=== PATIENT | male | born 1950 | race Caucasian/White ===

== ENCOUNTER → 2016-06-16 | Outpatient (CLI) | payer OTHER | END | disposition home or self-care (01) | LOC: LAB 10:13 | PROVIDERS: ATTEND Urology | DX: Z12.5 Encounter for screening for malignant neoplasm of prostate (principal); N40.0 Benign prostatic hyperplasia without lower urinary tract symptoms | CPT/HCPCS: G0103 ==

== ENCOUNTER 2016-09-25 14:25 | Emergency (ER) | payer OTHER ==
[~2016-09-25] VITALS: Ht 185.4 cm; Wt 83.9 kg
[2016-09-25 14:35] VITALS: BP 149/71
[2016-09-25] MEDS ORDERED: DIPHTH,PERTUSS(ACELL),TET TOX 0.5 ML DISP.SYRIN. VAX IM ONE (15:00)
--- NOTE | 2016-09-25 15:07 | PHYS DOC ---
Past History Past Medical History: Liver Disease, Other Past Surgical History: Other Alcohol Use: Rarely Drug Use: None Adult General Chief Complaint Chief Complaint: LACERATION/AVULSION HPI HPI 66-year-old male presenting to the emergency department today after sustaining an injury to his left second metacarpophalangeal joint. He was working with a miter saw when he accidentally cut into the backside of his hand. He reports being otherwise healthy and denies any other injuries. Onset today. Location left hand. Duration constant. No alleviating or exacerbating factors. Review of systems is negative for chest pain shortness of breath elbow pain or any other injuries. All other review of systems is negative unless otherwise noted in history of present illness. ED course: 66-year-old gentleman presenting to the emergency department with a left second metacarpophalangeal dorsal laceration. On inspection of the wound in good lighting and with good hemostasis there does not appear to be tendon injury however it is unclear whether the patient cut into his metacarpophalangeal joint. I discussed the case with our orthopedic surgeon on- call Dr. Ng and relayed my findings. He recommended thorough cleaning and washout in the emergency department with loose reapproximation and close follow- up. The wound was cleansed out in the emergency department with soap and water along with Betadine. Laceration was loosely reapproximated. The patient was subsequently discharged home to follow-up with Dr. Ng either tomorrow or on Thursday. If they were unable to get and they were to return to the emergency room. Strict return precautions given for signs of infection. Prophylactic antibiotics given. Review of Systems Review of Systems SEE ABOVE. Current Medications Current Medications Current Medications Medications (Trade) Dose Ordered Sig/Trudy Start Time Stop Time Status Last Admin Dose Admin Diphtheria/ Tetanus/Acell Pertussis (Boostrix) 0.5 ml ONCE ONCE 09/25/16 15:00 09/25/16 15:01 DC Allergies Allergies Allergies Coded Allergies Type Severity Reaction Last Updated Verified No Known Drug Allergies 09/25/16 No Physical Exam Physical Exam Constitutional: Well developed, well nourished, no acute distress, non-toxic appearance. [] HENT: Normocephalic, atraumatic, bilateral external ears normal, oropharynx moist, no oral exudates, nose normal. [] Eyes: PERRLA, EOMI, conjunctiva normal, no discharge. [] Neck: Normal range of motion, no tenderness, supple, no stridor. [] Cardiovascular:Heart rate regular rhythm, no murmur [] Lungs & Thorax: Bilateral breath sounds clear to auscultation [] Abdomen: Bowel sounds normal, soft, no tenderness, no masses, no pulsatile masses. [] Skin: Warm, dry, no erythema, no rash. [] Back: No tenderness, no CVA tenderness. [] Extremities: The left hand is warm and well perfused with a palpable pulse. 2 second cap refill distally with normal neurovascular status. Sensation is intact only radial and ulnar aspect of the patient's second phalanx. There is a 2 cm laceration running in the proximal distal direction just above the second metacarpophalangeal joint. No evidence of tendon laceration however it is unclear whether there was disruption of the joint space. Neurologic: Alert and oriented X 3, normal motor function, normal sensory function, no focal deficits noted. [] Psychologic: Affect normal, judgement normal, mood normal. [] Current Patient Data Vital Signs Vital Signs Date Time Temp Pulse Resp B/P (MAP) Pulse Ox O2 Delivery O2 Flow Rate FiO2 09/25/16 14:35 98.3 71 16 98 Room Air EKG EKG [] Radiology/Procedures Radiology/Procedures [] Course & Med Decision Making Course & Med Decision Making Pertinent Labs and Imaging studies reviewed. (See chart for details) [] Dragon Disclaimer Dragon Disclaimer This chart was dictated in whole or in part using Voice Recognition software in a busy, high-work load, and often noisy Emergency Department environment. It may contain unintended and wholly unrecognized errors or omissions. Departure Departure: Impression: Primary Impression: Hand laceration Disposition: HOME, SELF-CARE Condition: STABLE Referrals: PCP,UNKNOWN (PCP) Patient Instructions: Laceration Care, Adult Additional Instructions: Follow-up with Dr. Ng. either tomorrow or on Thursday. Scripts Hydrocodone Bit/Acetaminophen (HYDROCODONE-APAP 5-325 ) 1 Each Tablet 1 TAB PO PRN Q6HRS Y for PAIN, #8 TAB 0 Refills Prov: DANIEL CID MD 09/25/16 Amoxicillin/Potassium Clav (AUGMENTIN 875-125 TABLET) 1 Each Tablet 1 TAB PO BID, #14 TAB Prov: DANIEL CID MD 09/25/16 Laceration Repair Lac Repair Indication: [] Hand laceration Procedure: The patient was placed in the appropriate position and anesthesia around the left hand on the dorsum. The wound was washed out using 1 L of sterile saline and inspected under good lighting with good hemostasis. The laceration was closed using one absorbable suture and 5 nonabsorbable 50 sutures. [ Total repaired wound length: 2cm Other Items: The patient tolerated the procedure well. Complications: none. Problem Qualifiers Primary Impression: Hand laceration Encounter type: initial encounter Foreign body presence: without foreign body Laterality: left Qualified Codes: S61.412A - Laceration without foreign body of left hand, initial encounter DANIEL CID MD Sep 25, 2016 15:07
--- NOTE | 2016-09-25 15:21 | RAD ---
Left hand, 3 views, 09/25/2016: History: Left hand laceration No fracture or dislocation is identified. There is mild degenerative change at the wrist. IMPRESSION: No acute bony abnormality is detected.
[2016-09-25] MEDS ORDERED: LIDOCAINE WITH 8.4% SOD BICARB 3 ML DISP.SYRIN. IJ ONE (16:02)
[2016-09-25] MEDS ORDERED: AMOX1TAB61 PO (16:44)
[2016-09-25] MEDS ORDERED: HYDR-2758 PO (16:46)
== END 2016-09-25 16:40 | disposition home or self-care (01) ==
LOC: ER 14:25
DX: S61.211A Laceration without foreign body of left index finger without damage to nail, initial encounter (principal); W45.8XXA Other foreign body or object entering through skin, initial encounter; Y93.89 Activity, other specified; Y99.8 Other external cause status; Y92.89 Other specified places as the place of occurrence of the external cause
CPT/HCPCS: 12001; 73130; 90471; 90715; 99284-25

== ENCOUNTER → 2017-07-28 | Outpatient (CLI) | payer MEDICARE, OTHER ==
[~2017-07-28] MED LIST: AMOX1TAB61 PO; HYDR-2758 PO
== END | disposition home or self-care (01) ==
LOC: SURG 08:47
PROVIDERS: ATTEND Anesthesiology
DX: M47.892 Other spondylosis, cervical region (principal); Z98.890 Other specified postprocedural states
CPT/HCPCS: 99204

== ENCOUNTER → 2020-05-02 | Outpatient (CLI) | payer MEDICARE, OTHER ==
[~2020-05-02] MED LIST changes: +HYDR-2155 PO; -HYDR-2758 PO
--- NOTE | 2020-05-02 13:44 | RAD ---
Two-view abdomen dated 05/02/2020. No comparison available. Clinical data indication: Abdominal pain. FINDINGS: Flat and upright views obtained. Nondilated gas-filled loops of bowel throughout. No abnormal calcifi cation. There is a small moderate amount stool throughout. No air-fluid level or pneumoperitoneum on the upright view. Surgical clips at the left groin. IMPRESSION: Nonobstructive bowel gas pattern. Electronically signed by: Robe Del Angel MD (05/02/2020 1:42 PM) [id number]
== END ==
LOC: PMG 10:17
PROVIDERS: ATTEND Physician Assistant
DX: R10.84 Generalized abdominal pain (principal)
CPT/HCPCS: 74019

== ENCOUNTER → 2020-05-08 | Outpatient (CLI) | payer MEDICARE, OTHER ==
--- NOTE | 2020-05-08 09:46 | RAD ---
EXAM: Abdomen sonogram. HISTORY: Pain. TECHNIQUE: Sonographic imaging of the abdomen was performed. COMPARISON: None. FINDINGS: The liver is normal in size. No focal hepatic lesion is seen. The common bile duct is patrick l in caliber. The gallbladder is unremarkable. The kidneys are normal in size. There is moderate left hydronephrosis or a left extrarenal pelvis or 2.8 cm parapelvic cyst. The left kidney is partially o bscured due to bowel gas and rib shadowing. The spleen is normal in size. The pancreas, aorta and inf erior vena cava are obscured due to bowel gas. IMPRESSION: 1. Moderate left hydronephrosis or a left extrarenal pelvis or parapelvic cyst, difficult to assess g iven overlying bowel gas and rib shadowing. 2. Obscured midline structures due to bowel gas. Electronically signed by: Jessica Patel MD (05/08/2020 9:44 AM) [id number]
== END ==
LOC: US 08:43
PROVIDERS: ATTEND Physician Assistant
DX: R10.84 Generalized abdominal pain (principal)
CPT/HCPCS: 76700

== ENCOUNTER → 2020-05-21 | Outpatient (CLI) | payer MEDICARE, OTHER ==
--- NOTE | 2020-05-22 08:16 | RAD ---
CT ABDOMEN+PELVIS WO History: Hydronephrosis. Comparison: Ultrasound abdomen 05/08/2020, CT abdomen and pelvis 04/12/2012. Technique: CT of the abdomen and pelvis without contrast. Findings: Lung bases: Clear lungs. No pleural or pericardial effusion. General abdomen: No ascites. No free air. Liver : Normal in size and attenuation. No masses seen. Gallbladder/Biliary Tree: Normal gallbladder. No intrahepatic or extrahepatic biliary ductal dilatati on. Pancreas: Normal. Spleen: Normal in size and attenuation. Adrenal Glands: ?Normal. Genitourinary: The left kidney demonstrates numerous peripelvic cysts and a somewhat prominent extrar enal pelvis which appears similar to [address] There is a 3 mm left lower pole nephrolith.? The right kidney is normal. No renal masses identified. Normal partially distended bladder contour. Gastrointestinal: Unremarkable. Lymph nodes: No lymphadenopathy. Vessels: Unremarkable. Pelvic Organs: ?Coarse prostatic calcifications. Soft tissues: Left inguinal vasectomy clips. Bones: No acute or aggressive lesions. ?Fusion of the posterior elements L3-S1. Severe degenerative d isc and facet disease L2-L3. Impression: 1. Left kidney with multiple small peripelvic cysts and a prominent extrarenal pelvis. No significan t hydronephrosis. This is similar in appearance to 2013 examination. If required, extracardiac phase contrast could distinguish between peripelvic cysts and extrarenal pelvis, however likely no clinical benefit to this distinction. 2. Left lower pole 3 mm nephrolith. ------ Exposure: One or more of the following individualized dose reduction techniques were utilized for thi s examination: 1. Automated exposure control 2. Adjustment of the mA and/or kV according to patient size 3. Use of iterative reconstruction technique. Electronically signed by: Ryan Cedeno MD (05/22/2020 8:13 AM) [facility]
== END ==
LOC: CT 11:39
DX: N20.0 Calculus of kidney (principal); N28.1 Cyst of kidney, acquired
CPT/HCPCS: 74176